=== PATIENT | male | born 1980 | race American Indian/Alaskan Native ===

== ENCOUNTER 2019-03-02 22:25 | Emergency (ER) | payer MEDICAID, OTHER ==
[2019-03-02] MEDS ORDERED: Lidocaine 2% Viscous Solution 15 ML Cup PO ONE (22:26)
[2019-03-02 22:35] VITALS: BP 154/97; PULSE 68
[2019-03-02] MEDS ORDERED: Amoxicillin 500 MG Cap PO ONE (23:54)
[2019-03-03] MEDS ORDERED: Lidocaine 2% Viscous Solution 15 ML Cup ONE (00:01)
--- NOTE | 2019-03-03 00:05 | EDM.PDOC ---
ED HPI GENERAL MEDICAL PROBLEM - General Chief Complaint: ENT Problem Stated Complaint: LEFT FACIAL SWELLING Time Seen by Provider: 03/02/19 23:50 Source of Information: Reports: Patient History Limitations: Reports: No Limitations - History of Present Illness INITIAL COMMENTS - FREE TEXT/NARRATIVE: toothache left lower rear molar x 3 days, unable to sleep face swelling. Has been trying anbesol, tylenol and ibuprofen and none helping. Last dentist one year ago. No prior problems with this area. No fever or chills. Left Lower Tooth/Teeth Pain Score (Numeric/FACES): 9 - Related Data Allergies Allergy/AdvReac Type Severity Reaction Status Date / Time codeine Allergy Stomach Uncoded 03/02/19 22:43 Ache Home Meds: Home Meds Omeprazole Magnesium [Prilosec Otc] 20 mg PO DAILY 06/10/14 [History] Famotidine [Pepcid] 10 mg PO BID 03/02/19 [History] Past Medical History Gastrointestinal History: Reports: GERD - Past Surgical History GI Surgical History: Reports: Cholecystectomy Social & Family History - Tobacco Use Smoking Status *Q: Never Smoker - Recreational Drug Use Recreational Drug Use: No ED ROS GENERAL - Review of Systems Review Of Systems: Comprehensive ROS is negative, except as noted in HPI. ED EXAM, DIZZINESS - Physical Exam Exam: See Below Exam Limited By: No Limitations General Appearance: Alert, Mild Distress, Obese Eye Exam: Bilateral Eye: EOMI Ears: Normal External Exam, Hearing Grossly Normal, Hearing Loss. No: Mastoid Swelling Nose: Normal Inspection Throat/Mouth: Other (gum swollen left lower rear, medial and lateral tissue.) Head Exam: Facial Swelling (left lwer) Respiratory/Chest: No Respiratory Distress, Lungs Clear, Normal Breath Sounds Cardiovascular: Regular Rate, Rhythm Neurological: Alert, Normal Mood/Affect, Oriented x 3 Skin Exam: Warm, Dry, Intact, Normal Color Course - Vital Signs Last Recorded V/S: Last Vital Signs Temp 97.8 F 03/02/19 22:33 Pulse 68 03/02/19 22:33 Resp 16 03/02/19 22:33 BP 154/97 H 03/02/19 22:33 Pulse Ox 98 03/02/19 22:33 - Orders/Labs/Meds Meds: Medications Discontinued Medications Generic Name Dose Route Start Last Admin Trade Name Freq PRN Reason Stop Dose Admin Amoxicillin 1,000 mg 03/02/19 23:54 Amoxil PO 03/02/19 23:55 ONETIME ONE Departure - Departure Time of Disposition: 00:02 Disposition: Home, Self-Care 01 Condition: Good Clinical Impression: Dental abscess, Pain, dental - Discharge Information *PRESCRIPTION DRUG MONITORING PROGRAM REVIEWED*: No *COPY OF PRESCRIPTION DRUG MONITORING REPORT IN PATIENT RAINE: No Instructions: Dental Abscess Additional Instructions: Follow up with dentist in am amoxicillin 500mg one three times daily for one week chew opposite side avoid liquids with extreme temperatures continue alternating tylenol 650mg and ibuprofen 6oomg every 4 hours as needed for pain viscous lidocaine to area of pain 4 times daily as needed
== END 2019-03-03 00:10 | disposition home or self-care (01) ==
LOC: DL.ED 22:25
DX: K04.7 Periapical abscess without sinus (principal); Z88.5 Allergy status to narcotic agent
CPT/HCPCS: 99282; A9270

== ENCOUNTER 2020-03-31 11:59 | Emergency (ER) | payer MEDICAID, OTHER ==
[2020-03-31 12:19] VITALS: BP 135/85; PULSE 117
[2020-03-31 12:58] LABS: ACETAMINOPHEN 3 ug/mL (10-30 (Therapeutic)); ANION GAP 11.9 mEq/L (7-13); CHLORIDE,CL 101 mmol/L (98-107); SODIUM,NA 135 mmol/L (136-145)
--- NOTE | 2020-03-31 13:20 | EDM.PDOC ---
ED HPI GENERAL MEDICAL PROBLEM - General Chief Complaint: Respiratory Problem Stated Complaint: Fever, SOB Time Seen by Provider: 03/31/20 13:00 Source of Information: Reports: Patient, RN, RN Notes Reviewed History Limitations: Reports: No Limitations - History of Present Illness INITIAL COMMENTS - FREE TEXT/NARRATIVE: Patient presents to the ED via personal vehicle from the [facility] with complaints of shortness of breath, headache, and fever. The patient states he was diagnosed with a COVID infection yesterday on 03/30/2020 following symptoms that began on Sunday03/29/2020. He states he spiked at fever of 105 this morning and was concerned so he presented to the [facility]. A chest x- ray performed at that facility revealed pneumonia, so he was told to present to this emergency department. In additional to SOB, [place]HT[place], and fever the patient attests to cough, sore throat, sinus pressure/drainage, chest discomfort, palpitations, muscle aches, and nausea. He denies vision changes, vomiting, diarrhea, melena, or hematochezia. Per report the patient was given Tylenol 650mg x1 at the clinic; he has not taken any additional PRNs for these symptoms. The patient states he has a history of sleep apnea for which he is supposed to wear a CPap, but he does not have the device available. He denies any additional chronic health conditions. He denies tobacco or recreational drug use. He does attest to social alcohol use with a last drink of 03/28/2020. Headache Pain Score (Numeric/FACES): 8 - Related Data Allergies Allergy/AdvReac Type Severity Reaction Status Date / Time codeine AdvReac Stomach Uncoded 03/31/20 12:03 Ache Home Meds: Home Meds Omeprazole Magnesium [Prilosec Otc] 20 mg PO BID 06/10/14 [History] Past Medical History HEENT History: Reports: Impaired Vision Cardiovascular History: Reports: SOB on Exertion Respiratory History: Reports: SOB Other Respiratory History: PAtient coming in with confirmed pneumonia 03/31/20 Gastrointestinal History: Reports: GERD Musculoskeletal History: Reports: Fracture Other Musculoskeletal History: Right arm fx Dermatologic History: Reports: Psoriasis - Past Surgical History HEENT Surgical History: Reports: None Cardiovascular Surgical History: Reports: None Respiratory Surgical History: Reports: None GI Surgical History: Reports: Cholecystectomy Social & Family History - Tobacco Use Tobacco Use Status *Q: Former Tobacco User Used Tobacco, but Quit: Yes Month/Year Tobacco Last Used: 2 years ago - Caffeine Use Caffeine Use: Reports: Coffee, Energy Drinks, Soda, Tea - Recreational Drug Use Recreational Drug Use: No ED ROS GENERAL - Review of Systems Review Of Systems: Comprehensive ROS is negative, except as noted in HPI. ED EXAM, GENERAL - Physical Exam Exam: See Below Exam Limited By: No Limitations General Appearance: Alert, WD/WN, No Apparent Distress Eye Exam: Bilateral Eye: EOMI, Normal Inspection, PERRL (4mm) Ears: Normal External Exam, Normal Canal, Hearing Grossly Normal, Normal TMs Ear Exam: Bilateral Ear: Auricle Normal, Canal Normal, TM normal Nose: Clear Rhinorrhea. No: Nasal Tenderness, Nasal Swelling Throat/Mouth: Normal Voice, No Airway Compromise, Inflammation (Posterior oropharynx erythema), Other (White-coated tongue) Head: Atraumatic, Normocephalic, Sinus Tenderness. No: Facial Swelling, Facial Tenderness Neck: Supple, Non-Tender, Full Range of Motion, Lymphadenopathy (L), Lymphadenopathy (R). No: Thyromegaly Respiratory/Chest: No Respiratory Distress, Lungs Clear, Normal Breath Sounds, No Accessory Muscle Use. No: Chest Non-Tender (Tenderness with breathing), Crackles, Rales, Rhonchi, Wheezing, Stridor, Pleural Rub Cardiovascular: Normal Peripheral Pulses, Regular Rate, Rhythm, No Edema, No Gallop, No JVD, No Murmur, No Rub, Tachycardia Peripheral Pulses: 2+: Radial (L), Radial (R), Dorsalis Pedis (L), Dorsalis Pedis (R) GI/Abdominal: Normal Bowel Sounds, Soft, Non-Tender, No Distention, No Mass, Pelvis Stable (Male) Exam: Deferred Rectal (Males) Exam: Deferred Back Exam: Normal Inspection, Full Range of Motion. No: CVA Tenderness (L), CVA Tenderness (R) Extremities: Normal Inspection, Normal Range of Motion, Non-Tender, Normal Capillary Refill, No Pedal Edema Neurological: Alert, Oriented, CN II-XII Intact, Normal Cognition, Normal Gait, No Motor/Sensory Deficits Psychiatric: Normal Affect, Normal Mood Skin Exam: Dry, Normal Color, Rash (Erythematic plaques scattered to abdomen, back, neck, and face; patient states these are not new) #1 Interpretation EKG Date: 03/31/20 Time: 12:09 Rhythm: Other (Sinus Tachycardia) Rate (Beats/Min): 114 Mccall: Normal P-Wave: Present QRS: Normal ST-T: Normal QT: Normal Comparison: NA - No Prior EKG EKG Interpretation Comments: Sinus Tachycardia; No evidence of acute ischemia Course - Vital Signs Last Recorded V/S: Last Vital Signs Temp 101.2 F H 03/31/20 12:05 Pulse 117 H 03/31/20 12:05 Resp 22 H 03/31/20 12:05 BP 135/85 03/31/20 12:05 Pulse Ox 93 L 03/31/20 12:05 - Orders/Labs/Meds Orders: Active Orders 24 hr Category Date Time Status CULTURE BLOOD [BC] Stat Lab 03/31/20 12:10 Received CULTURE BLOOD [BC] Stat Lab 03/31/20 12:19 Received Blood Culture x2 Reflex Set [OM.PC] Stat Oth 03/31/20 12:02 Ordered Labs: Laboratory Tests 03/31/20 03/31/20 03/31/20 Range/Units 12:19 12:19 12:19 WBC 6.6 (5.0-10.0) 10^3/uL RBC 5.01 (4.6-6.2) 10^6/uL Hgb 15.1 (14.0-18.0) g/dL Hct 44.2 (40.0-54.0) % MCV 88.2 (80-100) fL MCH 30.1 (27.0-34.0) pg MCHC 34.2 (33.0-35.0) g/dL Plt Count 141 L (150-450) 10^3/uL Neut % (Auto) 77.1 H (42.2-75.2) % Lymph % (Auto) 13.0 L (20.5-50.1) % Wheeler % (Auto) 9.1 H (2-8) % Eos % (Auto) 0.5 L (1.0-3.0) % Baso % (Auto) 0.3 (0.0-1.0) % PT 11.5 (9.0-12.0) SEC INR 1.2 (0.9-1.2) D-Dimer, Quantitative (0-400) ng/mL Sodium 135 L (136-145) mmol/L Potassium 3.9 (3.5-5.1) mmol/L Chloride 101 (98-107) mmol/L Carbon Dioxide 26 (21-32) mmol/L Anion Gap 11.9 (7-13) mEq/L BUN 10 (7-18) mg/dL Creatinine 1.12 (0.70-1.30) mg/dL Est Cr Clr Drug Dosing 93.38 mL/min Estimated GFR (MDRD) > 60 BUN/Creatinine Ratio 8.9 (No establ ref range) Glucose 124 H (74-99) mg/dL Lactic Acid (0.4-2.0) mmol/L Calcium 8.1 L (8.5-10.1) mg/dL Total Bilirubin 0.5 (0.2-1.0) mg/dL AST 186 H (15-37) U/L ALT 167 H (16-63) U/L Alkaline Phosphatase 75 (46-116) U/L Lactate Dehydrogenase 251 H (85-227) U/L Troponin I < 0.017 (0.000-0.056) ng/mL C-Reactive Protein 3.1 H (0.0-0.9) mg/dL B-Natriuretic Peptide < 5 (0-100) pg/ml Total Protein 7.3 (6.4-8.2) g/dL Albumin 3.5 (3.4-5.0) g/dL Globulin 3.8 Albumin/Globulin Ratio 0.9 Urine Color (YELLOW) Urine Appearance (CLEAR) Urine pH (5.0-9.0) Ur Specific [place] (1.005-1.030) Urine Protein (NEGATIVE) Urine Glucose (UA) (NEGATIVE) Urine Ketones (NEGATIVE) Urine Occult Blood (NEGATIVE) Urine Nitrite (NEGATIVE) Urine Bilirubin (NEGATIVE) Urine Urobilinogen (0.2-1.0) mg/dL Ur Leukocyte Esterase (NEGATIVE) Urine RBC /HPF Urine WBC (0-5/HPF) /HPF Ur Epithelial Cells (NOT SEEN) /HPF Urine Mucus (NOT SEEN) /LPF Acetaminophen 3 L (10-30 (Therapeutic)) ug/mL 03/31/20 03/31/20 03/31/20 Range/Units 12:19 12:19 13:49 WBC (5.0-10.0) 10^3/uL RBC (4.6-6.2) 10^6/uL Hgb (14.0-18.0) g/dL Hct (40.0-54.0) % MCV (80-100) fL MCH (27.0-34.0) pg MCHC (33.0-35.0) g/dL Plt Count (150-450) 10^3/uL Neut % (Auto) (42.2-75.2) % Lymph % (Auto) (20.5-50.1) % Wheeler % (Auto) (2-8) % Eos % (Auto) (1.0-3.0) % Baso % (Auto) (0.0-1.0) % PT (9.0-12.0) SEC INR (0.9-1.2) D-Dimer, Quantitative 251 (0-400) ng/mL Sodium (136-145) mmol/L Potassium (3.5-5.1) mmol/L Chloride (98-107) mmol/L Carbon Dioxide (21-32) mmol/L Anion Gap (7-13) mEq/L BUN (7-18) mg/dL Creatinine (0.70-1.30) mg/dL Est Cr Clr Drug Dosing mL/min Estimated GFR (MDRD) BUN/Creatinine Ratio (No establ ref range) Glucose (74-99) mg/dL Lactic Acid 1.2 (0.4-2.0) mmol/L Calcium (8.5-10.1) mg/dL Total Bilirubin (0.2-1.0) mg/dL AST (15-37) U/L ALT (16-63) U/L Alkaline Phosphatase (46-116) U/L Lactate Dehydrogenase (85-227) U/L Troponin I (0.000-0.056) ng/mL C-Reactive Protein (0.0-0.9) mg/dL B-Natriuretic Peptide (0-100) pg/ml Total Protein (6.4-8.2) g/dL Albumin (3.4-5.0) g/dL Globulin Albumin/Globulin Ratio Urine Color Dark yellow (YELLOW) Urine Appearance Slightly cloudy (CLEAR) Urine pH 7.5 (5.0-9.0) Ur Specific [place] 1.020 (1.005-1.030) Urine Protein 30 H (NEGATIVE) Urine Glucose (UA) Negative (NEGATIVE) Urine Ketones Negative (NEGATIVE) Urine Occult Blood Negative (NEGATIVE) Urine Nitrite Negative (NEGATIVE) Urine Bilirubin Negative (NEGATIVE) Urine Urobilinogen 2.0 H (0.2-1.0) mg/dL Ur Leukocyte Esterase Negative (NEGATIVE) Urine RBC Not seen /HPF Urine WBC 0-5 (0-5/HPF) /HPF Ur Epithelial Cells Rare (NOT SEEN) /HPF Urine Mucus Few H (NOT SEEN) /LPF Acetaminophen (10-30 (Therapeutic)) ug/mL Meds: Medications Discontinued Medications Generic Name Dose Route Start Last Admin Trade Name Freq PRN Reason Stop Dose Admin Dexamethasone 6 mg 03/31/20 14:28 03/31/20 14:53 Decadron IVPUSH 03/31/20 14:29 6 mg ONETIME ONE Administration - Re-Assessments/Exams Free Text/Narrative Re-Assessment/Exam: 03/31/20 Workup negative for acute processes. CXR unremarkable. Patient's vital signs appropriate; O2 98% on RA. Discussed supportive cares at home for COVID infection. Will administer Dexamethasone 6mg IVP x1 and prescribe home course, as well. Will prescribe Zofran for ongoing nausea. Red flag signs and symptoms with would warrant evaluation discussed with patient. Patient verbalized understanding and agreement with the plan of care. Departure - Departure Time of Disposition: 14:29 Disposition: Home, Self-Care 01 Condition: Good Clinical Impression: COVID-19 virus infection, Elevated C-reactive protein (CRP), Nausea - Discharge Information *PRESCRIPTION DRUG MONITORING PROGRAM REVIEWED*: Not Applicable *COPY OF PRESCRIPTION DRUG MONITORING REPORT IN PATIENT RAINE: Not Applicable Instructions: COVID-19, COVID-19: How to Protect Yourself and Others - CDC Referrals: PCP,None [Primary Care Provider] - Forms: ED Department Discharge Additional Instructions: Rx: Zofran Rx: Dexamethasone 1.) Follow [place] State Health Department guidelines regarding quarantine. 2.) You may take acetaminophen (Tylenol) 1000mg every six hours as needed for fever and muscle aches. You may take ibuprofen (Advil/Motrin) 400mg every six hours as needed for fever and muscle aches. You may stagger these medications so you are taking a dose of medicine every three hours. 3.) Drink plenty of fluids to stay hydrated. 4.) Eat small, frequent meals to avoid nausea. Sepsis Event Note (ED) - Evaluation Sepsis Screening Result: Possible Sepsis Risk - Focused Exam Vital Signs: Vital Signs Temp Pulse Resp BP Pulse Ox 03/31/20 12:05 101.2 F H 117 H 22 H 135/85 93 L
--- NOTE | 2020-03-31 14:10 | CR ---
EXAMINATION: Chest 1V Frontal SEX: Male AGE: 39 years CLINICAL HISTORY: 39-year-old obese male complaining shortness of breath (SOB); COVID +. INTERPRETATION: Poor inspiratory effort upright AP portable chest. External machine adjuster leader lead. 1. Normal cardiac silhouette (size and configuration). 2. No pulmonary vascular congestion, alveolar edema or dependent effusion. 3. No lung mass or hilar lymphadenopathy. 4. No focal lobar consolidation (infiltrate/atelectasis), air bronchograms, or peripheral "groundglass" interstitial lung densities. 5. No pneumothorax or pneumomediastinum. Midline tracheal bronchial airway unremarkable. 6. No abnormal air trapping. No pneumothorax or pneumomediastinum. CONCLUSION: Negative exam.
[2020-03-31] MEDS ORDERED: Dexamethasone 4 MG/ML SDV IVPUSH ONE (14:28)
== END 2020-03-31 15:03 | disposition home or self-care (01) ==
LOC: DL.ED 11:59
DX: U07.1 COVID-19 (principal); R79.82 Elevated C-reactive protein (CRP); K21.9 Gastro-esophageal reflux disease without esophagitis; R00.0 Tachycardia, unspecified; Z87.891 Personal history of nicotine dependence; Z79.899 Other long term (current) drug therapy; Z88.5 Allergy status to narcotic agent
CPT/HCPCS: 36415; 71045; 80053; 80307; 81001; 83605; 83615; 83880; 84484; 85025; 85379; 85610; 86140; 87040; 93005; 93010; 96374; 99283; 99285-25; J1100

== ENCOUNTER 2020-04-06 04:00 | Emergency (ER) | payer MEDICAID ==
[2020-04-06 04:27] VITALS: BP 118/67; PULSE 96
--- NOTE | 2020-04-06 04:27 | EDM.PDOC ---
ED HPI GENERAL MEDICAL PROBLEM - General Chief Complaint: Respiratory Problem Stated Complaint: COVID+CANT BREATH Time Seen by Provider: 04/06/20 04:15 Source of Information: Reports: Patient, RN, RN Notes Reviewed History Limitations: Reports: Respiratory Distress - History of Present Illness INITIAL COMMENTS - FREE TEXT/NARRATIVE: Pt is a 39 year old male who presents to ER with c/o SOB. Patient began having COVID symptoms on 03/29 and tested positive for COVID on 03/30. Patient was seen in the ER on 03/31 with c/o fever. Patient was started on Dexamethasone at that time. Patient states fever has subsided but c/o increased SOB over the day on Sunday. He states he awoke with increased SOB and it worsened all day. Patient was seen in the clinic at [facility] on Sunday and was given inhalers and nebulizers as well as vitamins. Patient was in moderate respiratory distress upon arrival to the ER. He did ambulate in. Patient states chest pains only when coughing. Reports back ache/pain. Denies fever or chills, N/V/D. Denies generalized body aches. Patient denies smoking. Onset: Today, Gradual - Related Data Allergies Allergy/AdvReac Type Severity Reaction Status Date / Time codeine AdvReac Stomach Uncoded 04/06/20 04:27 Ache Home Meds: Home Meds Omeprazole Magnesium [Prilosec Otc] 20 mg PO BID 06/10/14 [History] Past Medical History Gastrointestinal History: Reports: GERD - Past Surgical History GI Surgical History: Reports: Cholecystectomy ED ROS GENERAL - Review of Systems Review Of Systems: Comprehensive ROS is negative, except as noted in HPI. ED EXAM, GENERAL - Physical Exam Exam: See Below Exam Limited By: Respiratory Distress General Appearance: Alert, WD/WN, Moderate Distress Eye Exam: Bilateral Eye: EOMI, Normal Inspection Ears: Normal External Exam, Hearing Grossly Normal Nose: Normal Inspection Throat/Mouth: Normal Inspection, Normal Voice, No Airway Compromise Head: Atraumatic, Normocephalic Neck: Normal Inspection, Supple, Non-Tender, Full Range of Motion Respiratory/Chest: Chest Non-Tender, Respiratory Distress, Decreased Breath Sounds, Crackles (bases bilaterally), Accessory Muscle Use Cardiovascular: Normal Peripheral Pulses, Regular Rate, Rhythm, No Edema, No Gallop, No JVD, No Murmur, No Rub Peripheral Pulses: 2+: Radial (L), Radial (R) GI/Abdominal: Normal Bowel Sounds, Soft, Non-Tender (Male) Exam: Deferred Rectal (Males) Exam: Deferred Back Exam: Normal Inspection, Full Range of Motion, NT Extremities: Normal Inspection, Normal Range of Motion, Non-Tender, Normal Capillary Refill, No Pedal Edema Neurological: Alert, Oriented, CN II-XII Intact, Normal Cognition, Normal Gait, Normal Reflexes, No Motor/Sensory Deficits Psychiatric: Normal Affect, Normal Mood Skin Exam: Warm, Dry, Intact, Normal Color, No Rash Lymphatic: No Adenopathy Course - Vital Signs Last Recorded V/S: Last Vital Signs Temp 99 F 04/06/20 04:23 Pulse 96 04/06/20 04:23 Resp 24 H 04/06/20 04:23 BP 118/67 04/06/20 04:23 Pulse Ox 92 L 04/06/20 04:32 - Orders/Labs/Meds Orders: Active Orders 24 hr Category Date Time Status CULTURE BLOOD [BC] Stat Lab 04/06/20 04:21 Received CULTURE BLOOD [BC] Stat Lab 04/06/20 05:04 Received Blood Culture x2 Reflex Set [OM.PC] Stat Oth 04/06/20 04:09 Ordered Labs: Laboratory Tests 04/06/20 04/06/20 04/06/20 Range/Units 04:21 04:21 04:21 WBC 11.8 H (5.0-10.0) 10^3/uL RBC 5.40 (4.6-6.2) 10^6/uL Hgb 16.0 (14.0-18.0) g/dL Hct 46.2 (40.0-54.0) % MCV 85.6 (80-100) fL MCH 29.6 (27.0-34.0) pg MCHC 34.6 (33.0-35.0) g/dL Plt Count 206 (150-450) 10^3/uL Neut % (Auto) 75.0 (42.2-75.2) % Lymph % (Auto) 16.8 L (20.5-50.1) % [place] % (Auto) 7.9 (2-8) % Eos % (Auto) 0.1 L (1.0-3.0) % Baso % (Auto) 0.2 (0.0-1.0) % Add Manual Diff Yes Neutrophils % (Manual) 68 (42-75) % Band Neutrophils % 8 % Lymphocytes % (Manual) 20 (20-50) % Monocytes % (Manual) 4 (2-8) % Atypical Lymphocytes Moderate PT 11.1 (9.0-12.0) SEC INR 1.2 (0.9-1.2) D-Dimer, Quantitative 106 (0-400) ng/mL Sodium 133 L (136-145) mmol/L Potassium 3.5 (3.5-5.1) mmol/L Chloride 94 L (98-107) mmol/L Carbon Dioxide 26 (21-32) mmol/L Anion Gap 16.5 H (7-13) mEq/L BUN 14 (7-18) mg/dL Creatinine 1.11 (0.70-1.30) mg/dL Est Cr Clr Drug Dosing 94.22 mL/min Estimated GFR (MDRD) > 60 BUN/Creatinine Ratio 12.6 (No establ ref range) Glucose 96 (74-99) mg/dL Lactic Acid (0.4-2.0) mmol/L Calcium 8.3 L (8.5-10.1) mg/dL Total Bilirubin 0.8 (0.2-1.0) mg/dL AST 71 H (15-37) U/L ALT 84 H (16-63) U/L Alkaline Phosphatase 68 (46-116) U/L Lactate Dehydrogenase 313 H (85-227) U/L Troponin I < 0.017 (0.000-0.056) ng/mL C-Reactive Protein 10.6 H (0.0-0.9) mg/dL B-Natriuretic Peptide < 5 (0-100) pg/ml Total Protein 7.2 (6.4-8.2) g/dL Albumin 3.0 L (3.4-5.0) g/dL Globulin 4.2 Albumin/Globulin Ratio 0.71 //21 Range/Units 04:21 WBC (5.0-10.0) 10^3/uL RBC (4.6-6.2) 10^6/uL Hgb (14.0-18.0) g/dL Hct (40.0-54.0) % MCV (80-100) fL MCH (27.0-34.0) pg MCHC (33.0-35.0) g/dL Plt Count (150-450) 10^3/uL Neut % (Auto) (42.2-75.2) % Lymph % (Auto) (20.5-50.1) % [place] % (Auto) (2-8) % Eos % (Auto) (1.0-3.0) % Baso % (Auto) (0.0-1.0) % Add Manual Diff Neutrophils % (Manual) (42-75) % Band Neutrophils % % Lymphocytes % (Manual) (20-50) % Monocytes % (Manual) (2-8) % Atypical Lymphocytes PT (9.0-12.0) SEC INR (0.9-1.2) D-Dimer, Quantitative (0-400) ng/mL Sodium (136-145) mmol/L Potassium (3.5-5.1) mmol/L Chloride (98-107) mmol/L Carbon Dioxide (21-32) mmol/L Anion Gap (7-13) mEq/L BUN (7-18) mg/dL Creatinine (0.70-1.30) mg/dL Est Cr Clr Drug Dosing mL/min Estimated GFR (MDRD) BUN/Creatinine Ratio (No establ ref range) Glucose (74-99) mg/dL Lactic Acid 3.2 H* (0.4-2.0) mmol/L Calcium (8.5-10.1) mg/dL Total Bilirubin (0.2-1.0) mg/dL AST (15-37) U/L ALT (16-63) U/L Alkaline Phosphatase (46-116) U/L Lactate Dehydrogenase (85-227) U/L Troponin I (0.000-0.056) ng/mL C-Reactive Protein (0.0-0.9) mg/dL B-Natriuretic Peptide (0-100) pg/ml Total Protein (6.4-8.2) g/dL Albumin (3.4-5.0) g/dL Globulin Albumin/Globulin Ratio Meds: Medications Discontinued Medications Generic Name Dose Route Start Last Admin Trade Name Freq PRN Reason Stop Dose Admin Guaifenesin/Phenylephrine HCl 10 ml 04/06/20 04:28 04/06/20 04:33 Robitussin Dm PO 04/06/20 04:29 10 ml ONETIME ONE Administration Sodium Chloride 1,000 mls @ 999 mls/hr 04/06/20 05:24 04/06/20 05:44 Normal Saline IV 04/06/20 06:24 200 mls/hr .BOLUS ONE Administration - Radiology Interpretation Free Text/Narrative:: Chest xray: See rad report - Re-Assessments/Exams Free Text/Narrative Re-Assessment/Exam: 04/06/20 05:39 Patient placed on Bipap. Patient more relaxed. O2 saturation up to 97%, Resp continue to be 30-33. 04/06/20 05:40 Discussed patient case with Dr. Gary who agreed to accept the patient for transfer to [facility] in [place]. [employer] unable to fly to [place]. Patient will be transferred to [facility] Departure - Departure Time of Disposition: 06:15 Disposition: DC/Tfer to Acute Hospital 02 Condition: Serious Clinical Impression: COVID-19 virus infection Respiratory failure Qualifiers: Chronicity: acute Respiratory failure complication: hypoxia Qualified Code(s): J96.01 - Acute respiratory failure with hypoxia - Discharge Information *PRESCRIPTION DRUG MONITORING PROGRAM REVIEWED*: No *COPY OF PRESCRIPTION DRUG MONITORING REPORT IN PATIENT RAINE: No Forms: ED Department Discharge, [facility] Sepsis Event Note (ED) - Focused Exam Vital Signs: Vital Signs Temp Pulse Resp BP Pulse Ox 04/06/20 04:32 92 L 04/06/20 04:23 99 F 96 24 H 118/67 77 L - My Orders Last 24 Hours: My Active Orders 04/06/20 04:09 Blood Culture x2 Reflex Set [OM.PC] Stat 04/06/20 04:21 CULTURE BLOOD [BC] Stat 04/06/20 05:04 CULTURE BLOOD [BC] Stat - Assessment/Plan Last 24 Hours: My Active Orders 04/06/20 04:09 Blood Culture x2 Reflex Set [OM.PC] Stat 04/06/20 04:21 CULTURE BLOOD [BC] Stat 04/06/20 05:04 CULTURE BLOOD [BC] Stat
[2020-04-06] MEDS ORDERED: guaiFENesin/Dextromethorphan 100-10 MG/5 ML Soln 5 ML Cup PO ONE (04:28)
[2020-04-06 04:50] LABS: ANION GAP 16.5 mEq/L (7-13); CHLORIDE,CL 94 mmol/L (98-107); SODIUM,NA 133 mmol/L (136-145)
[2020-04-06] MEDS ORDERED: Sodium Chloride 0.9% 1,000 ML IV ONE (05:24)
--- NOTE | 2020-04-06 06:16 | CR ---
PROCEDURE INFORMATION: Exam: XR Chest, 1 View Exam date and time: 04/06/2020 5:54 AM Age: 39 years old Clinical indication: Other: Chest pain, covid +; Additional info: Chest pain, covid + TECHNIQUE: Imaging protocol: XR of the chest Views: 1 view. COMPARISON: CR Chest 1V Frontal 03/31/2020 2:00 PM FINDINGS: Lungs: Extensive bilateral pulmonary opacities in a pattern consistent with COVID-19 pneumonia. Pleural space: Unremarkable. No pleural effusion. No pneumothorax. Heart/Mediastinum: Unremarkable. No cardiomegaly. Bones/joints: Unremarkable. IMPRESSION: Worsened bilateral pulmonary opacities since the prior study.
== END 2020-04-06 06:15 ==
LOC: DL.ED 04:00
DX: U07.1 COVID-19 (principal); J96.01 Acute respiratory failure with hypoxia; K21.9 Gastro-esophageal reflux disease without esophagitis; Z88.5 Allergy status to narcotic agent; Z79.899 Other long term (current) drug therapy
CPT/HCPCS: 36415; 71045; 80053; 83605; 83615; 83880; 84484; 85025; 85379; 85610; 86140; 87040; 93005; 99284; 99285-25; A9270-GY; J7030